=== PATIENT | male | born 1935 | race Caucasian/White ===

== ENCOUNTER 2021-12-16 12:29 | Outpatient (CLI) | payer MEDICARE, OTHER ==
[~2021-12-16 12:29] MED LIST: Magnevist 469MG/ML 20 ML VIAL ONE
== END 2021-12-16 12:30 | disposition home or self-care (01) ==
LOC: CSHMRI 12:29
PROVIDERS: ATTEND Internal Medicine
DX: K83.8 Other specified diseases of biliary tract (principal); K86.2 Cyst of pancreas; Z94.4 Liver transplant status
CPT/HCPCS: 74183; 82565

== ENCOUNTER 2023-01-28 01:11 | Emergency (ER) | payer MEDICARE, OTHER ==
[2023-01-28 02:08] LABS: #Eosinphils 0.1 10x3/uL (0.0-0.5); #Monocytes 0.5 10x3/uL (0.0-1.1); #Neutrophils 2.9 10x3/uL (1.5-8.4); %Basophils 0.4 % (0.0-2.0); %Eosinophils 1.7 % (0.0-6.0); %Lymphocytes 25.7 % (18.0-47.0); %Monocytes 10.8 % (0.0-10.0); %Neutrophils 60.8 % (40.0-75.0); Hematocrit 39.9 % (38.8-50.0); Hemoglobin 12.4 g/dL (13.5-17.5); Mean Corpuscular HGB CONC 31.1 g/dL (32.0-36.0); Mean Corpuscular Volume 83.6 fl (81.2-95.1); Mean Platelet Volume 9.1 fl (7.4-10.4); Platelet Count 185 10x3/uL (150-450); Red Blood Cell (RBC) Count 4.77 10x6/uL (4.32-5.72); White Blood Cell (WBC) Count 4.8 10x3/uL (3.5-10.5)
[2023-01-28 02:18] LABS: Actual Bicarbonate (HCO3a) 29.5 mEq/L (22-28); Base Excess (BEa) 4.1 mEq/L (-2.0 to +3.0); CO2 Tension 47.8 mmHg (35.0-45.0); Calcium, Ionized (arterial) 1.26 mmol/L (1.12-1.30); Carboxyhemoglobin (COHb) 0.1 gm% (0.0-3.0); Hematocrit-ABG 36 % (42.0-52.0); Hemoglobin (Hb) 12.1 g/dL (14.0-18.0); O2 Tension (PaO2), arterial 174.5 mmHg (> 60.0); Potassium - ABG Lab 3.72 mmol/L (3.70-5.30); Puncture Site RRA; pH, Arterial 7.408 (7.35-7.45)
[2023-01-28 02:19] LABS: ALT (SGPT) 16 U/L (8-55); AST (SGOT) 19 U/L (5-34); Albumin 4.3 g/dL (3.4-4.8); Alkaline Phosphatase 77 U/L (40-110); Anion Gap 15 mmol/L (10-20); BUN (Urea Nitrogen) 22 mg/dL (8.4-25.7); Bilirubin, Total 0.6 mg/dL (0.2-1.2); Calc. Creatinine Clearance 0 mL/min (70-130); Calcium 10.3 mg/dL (7.8-10.44); Carbon Dioxide 27 mmol/L (23-31); Chloride 103 mmol/L (98-107); Estimated GFR 58; Globulin 2.8 g/dL (2.4-3.5); Glucose 117 mg/dL (83-110); Potassium 3.9 mmol/L (3.5-5.1); Protein, Total 7.1 g/dL (5.8-8.1); Sodium 141 mmol/L (136-145)
[2023-01-28 02:25] LABS: Troponin I Less than 0.010 ng/mL (< 0.028)
[2023-01-28 02:29] LABS: SARS-CoV-2 NAA Rapid Test Not Detected (NotDetected)
== END 2023-01-28 04:17 | disposition home or self-care (01) ==
LOC: CSHERS 01:11
DX: R06.00 Dyspnea, unspecified (principal); I25.10 Atherosclerotic heart disease of native coronary artery without angina pectoris; E03.9 Hypothyroidism, unspecified; Z20.822 Contact with and (suspected) exposure to COVID-19; Z79.02 Long term (current) use of antithrombotics/antiplatelets; Z79.82 Long term (current) use of aspirin; Z79.899 Other long term (current) drug therapy
CPT/HCPCS: 0240U; 36600; 71045; 80053; 82805; 83880; 84484; 85025; 93005; 99285